=== PATIENT | male | born 2000 | race African-American/Black ===

== ENCOUNTER 2022-06-01 15:39 | Emergency (ER) | payer SELFPAY ==
[2022-06-01] MEDS ORDERED: SODIUM CHLORIDE 0.9% 1000 ML 1,000 ML IV ONE (15:51)
[2022-06-01] MEDS ORDERED: HYDROmorphone 1 MG/1 ML INJ IV ONE (15:57)
[2022-06-01] MEDS ORDERED: HYDROmorphone 2 MG/1 ML INJ IV SCH (16:00)
[2022-06-01] MEDS ORDERED: fentaNYL 100 MCG/2 ML INJ ONE (16:14)
[2022-06-01 16:15] VITALS: BP 144/96
[2022-06-01] MEDS ORDERED: fentaNYL 100 MCG/2 ML INJ IV ONE ×2 (16:17→16:40)
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
[2022-06-01] MEDS ORDERED: HYDROmorphone 1 MG/1 ML INJ IV SCH (16:30)
== END 2022-06-01 16:52 | disposition short-term general hospital (02) ==
LOC: ED 15:39
DX: T30.0 Burn of unspecified body region, unspecified degree (principal)
CPT/HCPCS: 96361; 96374; 96375; 96376; 99291; J1170; J3010; J7030